=== PATIENT | male | born 1960 | race Caucasian/White ===

== ENCOUNTER 2019-01-25 21:35 | Inpatient (IN) | payer BC ==
[~2019-01-25] VITALS: Ht 180.3 cm; Wt 106.8 kg
--- NOTE | 2019-01-25 21:45 | NUR ---
RECEIVED PT A DIRECT ADMIT FROM [facility]. PT WAS TRANSFERRED BY [facility] VIA STRETCHER. PT STATED THAT HE CAME IN DUE TO CHEST PAIN X3 DAYS AND SOB X1 MONTH. AAOX4. DENIES HEADACHE/DIZZINESS. ABLE TO FOLLOW COMMANDS. DENIES CHEST PAIN/PRESSURE, SR W/ BBB AND DEPRESSED ST. HR=85. NO SOB NOTED, LUNG SOUNDS DIMINISHED ON AUSCULTATION, O2 SAT=94% RA. DENIES ABDOMINAL DISCOMFORT. BOWEL SOUNDS ACTIVE. ABLE TO PASS GAS. ABDOMEN IS DISTENDED AND MILDLY FIRM. VOIDS. W/ DARK DISCOLORATION AND SCABS ON BLE. W/ RIGHT ARM PICC LINE DOUBLE LUMEN AND IV ON THE LFA GAUGE 20. CALL LIGHT ON REACH. SIDE RAILS UPX2. PRIMARY NURSE SHANE AT BEDSIDE FOR CONTINUITY OF CARE
--- NOTE | 2019-01-25 21:50 | NUR ---
DR BECERRA MADE AWARE PT ARRIVED TO HOSPITAL.
[2019-01-25 22:22] VITALS: BP 114/79
--- NOTE | 2019-01-25 22:44 | NUR ---
PER PT, HE IS NOT TAKING ANY MEDICATIONS AT HOME
[2019-01-26 01:59] LABS: T3 TOTAL 1.19 ng/mL
--- NOTE | 2019-01-26 02:00 | NUR ---
PT RESTING. NO SIGNS OF DISTRESS NOTED. CALL BUTTON WITHIN REACH. SAFETY PRECAUTIONS IN PLACE. WILL MONITOR.
[2019-01-26 02:09] LABS: FREE T4 0.79 ng/dL (0.76-1.46); FREE THYROXINE INDEX 2.1 ug/dL (1.4-4.5); T4(THYROXINE) 6.4 ug/dL (4.7-13.3)
--- NOTE | 2019-01-26 02:18 | NUR ---
DR BECERRA MADE AWARE PT TROP 0.152, PT DENIES CHEST PAIN AT THIS TIME.
[2019-01-26 02:51] LABS: CHOLESTEROL/HDL RATIO 3.5; MAGNESIUM 2.3 mg/dL (1.8-2.4); PHOSPHOROUS 4.9 mg/dL (2.5-4.9)
--- NOTE | 2019-01-26 03:00 | NUR ---
HEPARIN INFUSION STARTED AT THIS TIME PER HEPARIN DRIP PROTOCOL AT 1300 UNITS/HR. INITIAL LOADING DOSE OF 64OO UNITS GIVEN AT THIS TIME. NO SIGNS OF BLEEDING/BRUSIING NOTED. WILL CONTINUE TO MONITOR.
--- NOTE | 2019-01-26 03:00 | NUR ---
HEPARIN INFUSION STARTED AT THIS TIME PER HEPARIN DRIP PROTOCOL AT 1300 UNITS/HR. NO SIGNS OF BLEEDING/BRUSIING NOTED. WILL CONTINUE TO MONITOR.
--- NOTE | 2019-01-26 04:19 | NUR ---
ROUNDS MADE. PT RESTING. NO SIGNS OF DISTRESS NOTED. CALL BUTTON WITHIN REACH. SAFETY PRECAUTIONS IN PLACE. WILL CONTINUE TO MONITOR.
[2019-01-26 04:26] LABS: microscopic required? NO
[2019-01-26 04:32] LABS: UA SPECIFIC GRAVITY 1.015 (1.005-1.035); urine erythrocyte NEGATIVE (NEGATIVE)
[2019-01-26 04:41] LABS: AMPHETAMINE QUAL UR NONE DETECTED (See below)
[2019-01-26 05:26] VITALS: BP 125/88
[2019-01-26 06:42] LABS: BASOPHIL % 0.7 % (0-2); PLATELET COUNT 216 x10^3mcL (130-400)
[2019-01-26 06:44] LABS: RED CELL DISTRIBUTION WIDTH 15.9 % (11.5-14.5)
[2019-01-26 07:11] LABS: CALCIUM 9.1 mg/dL (8.5-10.1); CARBON DIOXIDE 29.7 mmol/L (21-32); CHLORIDE SERUM 104 mmol/L (98-107); CREATININE SERUM 1.3 mg/dL (0.7-1.3); GFR1 > 60 mL/min; GLUCOSE SERUM 102 mg/dL (74-106); MAGNESIUM 2.1 mg/dL (1.8-2.4); PHOSPHOROUS 4.3 mg/dL (2.5-4.9); SODIUM SERUM 142 mmol/L (136-145)
--- NOTE | 2019-01-26 07:40 | NUR ---
PT SLEPT MOST OF THE NIGHT WITH NO SIGNS OF DISTRESS. MEDICATED PER EMAR. HEPARIN DRIP INFUSING AT 1300 UNITS/HR. NO BLEEDING/BRUISING NOTED. PT DENIES CHEST PAIN. ENDORSED CARE TO DAY SHIFT RN, ALL QUESTIONS ADDRESSED.
--- NOTE | 2019-01-26 08:25 | NUR ---
RECEIVED PATIENT FROM KERRIE LYNN. PATIENT IN BED AT THIS TIME, NO COMPLAINTS. STATES THAT "THEY KEPT WAKING HIM UP AT NIGHT". SPOKE WITH PATIENT ABOUT PLAN OF CARE FOR TODAY AND PATIENT AGREES. WILL AWAIT CARE TEAM TO COME IN AND SPEAK WITH PATIENT. CALL LIGHT IN REACH AT THIS TIME.
[2019-01-26 09:28] VITALS: BP 122/86
--- NOTE | 2019-01-26 10:44 | NUR ---
RECEIVED CALL FROM LAB THAT PATIENT PTT IS >150. HEPARIN INFUSION PAUSED. SPOKE WITH DR CALDERON SAYED AND MADE AWARE. STATES WILL ORDER PTT Q2H UNTIL PTT <120 PER HEPARIN INFUSION PROTOCOL. CHARGE NURSE BRIAN MADE AWARE. PATIENT SLEEPING IN BED AT THIS TIME, DR MONDRAGON AND TEAM IN TO SPEAK W PATIENT BUT PATIENT ASLEEP. CALL LIGHT IN REACH.
--- NOTE | 2019-01-26 13:25 | NUR ---
SPOKE WITH ON PHONE ABOUT PATIENT CONDITION AND PLAN OF CARE. PATIENT UP TO CHAIR FOR LUNCH, THEN PREPARED FOR SHOWER. SHOWER OK PER DR CALDERON SAYED, ORDER PRESENT.
[2019-01-26 13:35] VITALS: BP 102/65
--- NOTE | 2019-01-26 13:46 | NUR ---
FU PTT RESULT FROM LAB IS 23.6. INFORMED CHARGE NURSE EMY AND DR CALDERON SAYED FOR LAB VALUE DISCREPANCY AT PREVIOUS VALUE WAS >150. WILL REORDER PTT DRAW MODIFIED FROM PERIPHERY ACCESS VIA L ARM, AND RESTART HEPARIN DRIP ACCORDINGLY.
--- NOTE | 2019-01-26 14:35 | NUR ---
PER HEPARIN DRIP PROTOCOL, 6400 U HEPARIN NEEDED FOR BOLUS. VERIFIED AND COSIGNED BY KERRIE CASTILLO. WITNESSED BY KERRIE SOLIS. SPOKE WITH DR CALDERON SAYED FOR CHANGED OF INFUSION RATE, OK UP TO MAX DOSE OF 1500 UNITS/HR. PATIENT IN BED AT THIS TIME WITH NO COMPLAINTS. COMPLIANT WITH BREATHING TREATMENT AT THIS TIME. CALL LIGHT AND PHONE IN REACH.
[2019-01-26 17:56] VITALS: BP 112/77
--- NOTE | 2019-01-26 18:24 | NUR ---
PATIENT IN BED AT THIS TIME. DR HOFFMANN IN TO SPEAK WITH PATIENT AND STATES THAT HE WILL DC HEPARIN DRIP AND LIKELY DC CATHERIZATION SCHEDULED FOR MONDAY. PATIENT VERBALIZES UNDERSTANDING AND AGREES WITH PLAN. CALL LIGHT IN REACH, WILL ENDORSE TO ONCOMING NURSE.
--- NOTE | 2019-01-26 19:30 | NUR ---
RECEIVED PT FROM DAY SHIFT RN. PT AAOX4. DENIES BHATT/DIZZINESS. PT BREATHING EVEN AND UNLABORED ON RA WITH NO SOB NOTED. RT PROTOCOL. TELE #[address], HR 89. PT DENIES CHEST PAIN OR PRESSURE. IV LFA PATENT SL. PICC LINE TO RIGHT ARM, PATENT. NO SIGNS OF ACUTE DISTRESS. CALL BUTTON WITHIN REACH. SAFETY PRECAUTIONS IN PLACE. WILL CONTINUE TO MONITOR.
[2019-01-26 20:34] VITALS: BP 100/71
--- NOTE | 2019-01-26 22:20 | NUR ---
PT REPORTED HAVING GENREALIZED BODY PAIN. MEDICATED PER EMAR. CALL BUTTON WITHIN REACH. SAFETY PRECAUTIONS IN PLACE. WILL CONTINUE TO MONITOR.
--- NOTE | 2019-01-27 01:03 | NUR ---
PT RESTING. BREATHING EVEN AND UNLABORED WITH NO SIGNS OF DISTRESS. CALL BUTTON WITHIN REACH. SAFETY PRECAUTIONS IN PLACE. WILL CONTINUE TO MONITOR.
--- NOTE | 2019-01-27 05:00 | NUR ---
PT SLEPT MOST OF THE NIGHT WITH NO SIGNS OF DISTRESS. MEDICATED PER EMAR. PT CONTINUE TO REFUSE ACCU CHECKS. PT REPORTED GENERALIZED PAIN, MEDICATED PER EMAR WITH RELIEF. CALL BUTTON WITHIN REACH. SAFETY PRECAUTIONS IN PLACE. WILL CONTINUE TO MONITOR AND ENDORSE CARE TO DAY SHIFT RN.
[2019-01-27 05:23] VITALS: BP 114/88
[2019-01-27 06:29] LABS: CALCIUM 9.2 mg/dL (8.5-10.1); CARBON DIOXIDE 29.6 mmol/L (21-32); CHLORIDE SERUM 103 mmol/L (98-107); CREATININE SERUM 1.1 mg/dL (0.7-1.3); GFR1 > 60 mL/min; GLUCOSE SERUM 98 mg/dL (74-106); MAGNESIUM 2.2 mg/dL (1.8-2.4); PHOSPHOROUS 3.9 mg/dL (2.5-4.9); POTASSIUM SERUM 4.1 mmol/L (3.5-5.1); SODIUM SERUM 140 mmol/L (136-145)
[2019-01-27 07:01] LABS: BASOPHIL % 0.7 % (0-2); PLATELET COUNT 221 x10^3mcL (130-400)
--- NOTE | 2019-01-27 07:39 | NUR ---
PT RESTING. NO SIGNS OF DISTRESS NOTED. ENDORSED CARE TO DAY SHIFT RN, ALL QUESTIONS ADDRESSED.
--- NOTE | 2019-01-27 07:49 | NUR ---
RECEIVED PATIENT FROM KERRIE LYNN. PATIENT IN BED SLEEPING AT THIS TIME. NO S/S OF CP OR SOB. WILL UPDATE PATIENT TO PLAN FOR TODAY ONCE PATIENT AWAKENS. WILL LIGHT IN REACH AT THIS TIME.
[2019-01-27 08:03] VITALS: BP 119/86
--- NOTE | 2019-01-27 11:11 | NUR ---
DR MONDRAGON & DR CALDERON SAYED IN TO SPEAK WITH PATIENT. STATES THAT PATIENT WILL LIKELY BE DISCHARGED TODAY BUT IT IS NECESSARY FOR PATIENT TO FU WITH A PCP. PATIENT STATES THAT HE DOES NOT SEE A PCP. WILL WAIT FOR DISCHARGE ORDERS, PRESCRIPTIONS AND RESOURCES TO BE GIVEN TO PATIENT. PATIENT VERBALIZES UNDERSTANDING. NO CHEST PAIN AT THIS TIME.
[2019-01-27 12:38] VITALS: BP 114/78
[2019-01-27] MEDS ORDERED: GOOD SENSE ASPI81 M3 PO (12:46)
[2019-01-27] MEDS ORDERED: CARVEDILOL3.125 M1 PO (12:47)
[2019-01-27] MEDS ORDERED: LISINOPRIL10 MG PO (12:48)
[2019-01-27] MEDS ORDERED: LASIX40 MG PO (12:49)
[2019-01-27] MEDS ORDERED: LIPI20 PO (12:50)
[2019-01-27] MEDS ORDERED: GLU500 PO (12:56)
[2019-01-27 13:01] VITALS: BP 114/78
--- NOTE | 2019-01-27 13:10 | NUR ---
PT FOR DISCHARGE HOME TODAY. PT WITH PICC LINE DIXIE, DIEGO ORDER FROM (RESIDENT) ASSIGNED TO THIS PT TO DISCONTINUE PICC LINE PRIOR TO DISCHARGE HOME TODAY. CALLED P[employer] AND SPOKE TO LEORA(PICC LINE RN) AND MADE HIM AWARE OF ABOVE'S ORDER, HE SAYS HE WILL BE COMING IN 3O MINITES TO DISCONTUNUE THE OICC LINE. SHAUNA SY ASSIGNED TO THIS PT MADE AWARE OF ABOVE.
--- NOTE | 2019-01-27 14:02 | NUR ---
DISCHARGE INSTRUCTIONS GIVEN AND EXPLAINED TO PATIENT. PRESCRIPTIONS ALSO GIVEN TO PATIENT AND EXPLAINED. ALL QUESTIONS ADDRESSED. SIGNATURES OBTAINED, ID BANDS REMOVED. IV CATHETER REMOVED AND INTACT, TELEMETRY UNIT RETURNED TO JODIE COREY. PICC LINE NURSE LEORA IN DURING DISCHARGE AND PICC LINE REMOVED AND INTACT. PATIENT WITH ALL BELONGINGS ESCORTED DOWN TO [facility], VIA WHEELCHAIR.
--- NOTE | 2019-01-29 08:40 | NUR ---
WOUND CARE CONSULT NOT DONE PT. DISCHARGED.
== END 2019-01-27 14:00 | disposition home or self-care (01) | DRG 190 ==
LOC: DU 21:35
PROVIDERS: ADMIT Internal Medicine
DX: I21.4 Non-ST elevation (NSTEMI) myocardial infarction (principal); I50.43 Acute on chronic combined systolic (congestive) and diastolic (congestive) heart failure; I42.9 Cardiomyopathy, unspecified; E11.9 Type 2 diabetes mellitus without complications; I11.0 Hypertensive heart disease with heart failure; F15.10 Other stimulant abuse, uncomplicated; I87.8 Other specified disorders of veins; E78.5 Hyperlipidemia, unspecified; G47.00 Insomnia, unspecified; F17.210 Nicotine dependence, cigarettes, uncomplicated; Z91.14 Patient's other noncompliance with medication regimen; I25.2 Old myocardial infarction
CPT/HCPCS: 82962; 83880; 84439; G0378; J1644; J1940; J7030; J7620